=== PATIENT | male | born 1990 | race Caucasian/White ===

== ENCOUNTER 2017-04-28 09:27 | Emergency (ER) | payer SELFPAY ==
[2017-04-28 09:29] VITALS: BP 160/73; PULSE 91; RESP 17; TEMP 98.4; O2SAT 99
--- NOTE | 2017-04-28 09:45 | PD ---
HPI . left hand swelling x 2 days Chief Complaint: Injury Time Seen by Provider: 09:45 Travel History International Travel<30 days: No Contact w/Intl Traveler<30days: No Traveled to known affect area: No History of Present Illness HPI 27-year-old male here with complaints of left hand swelling 2 days. Patient says that he initially noticed some right hand swelling that all of a sudden his left hand started swelling 2 days ago. He admits to the area being very tender. He doesn't know if something may have started him. There is some slight bruising, but he is not certain if he may have hit something. He denies any IV drug use. He is accompanied by his mother. PFSH Past Medical History Asthma: No Blood Disorders: No Anxiety: No Depression: No Heart Rhythm Problems: No Cancer: No Cardiovascular Problems: No High Cholesterol: No Chemotherapy: No Chest Pain: No Congestive Heart Failure: No COPD: No Diabetes: No Diminished Hearing: No Endocrine: No Genitourinary: No Immune Disorder: No Musculoskeletal: No Neurologic: No Psychiatric: No Reproductive: No Respiratory: No Radiation Therapy: No Sleep Apnea: No Thyroid Disease: No Social History Alcohol Use: No Tobacco Use: Yes (one half to a pack of cigarettes per day) Substance Use: Yes (heroin and "pills") Allergies-Medications (Allergen,Severity, Reaction): Coded Allergies: No Known Allergies (Unverified , 12/20/16) Reported Meds & Prescriptions Reported Meds & Active Scripts Active Ibuprofen 800 Mg Tab 800 Mg PO Q8H PRN Review of Systems General / Constitutional: No: Fever Eyes: No: Visual changes HENT: No: Headaches Cardiovascular: No: Chest Pain or Discomfort Respiratory: No: Shortness of Breath Gastrointestinal: No: Abdominal Pain Genitourinary: No: Dysuria Musculoskeletal: Positive: Edema (left hand), Pain (left hand) Skin: No Rash Neurologic: No: Weakness Psychiatric: No: Depression Endocrine: No: Polydipsia Hematologic/Lymphatic: No: Easy Bruising Physical Exam Narrative GENERAL: AAO x 3, no acute distress, Well-nourished, well-developed patient. SKIN: Warm and dry. No visible rashes or bruising. left hand edematous; tender to touch, slight ecchymosis to palmar surface, pulses normal b/l; cap refill normal HEAD: Normocephalic and atraumatic. EYES: No scleral icterus. No injection or drainage. ENT: No nasal drainage noted. Mucous membranes pink. Airway patent. NECK: Supple, trachea midline. No JVD. CARDIOVASCULAR: Regular rate and rhythm without murmurs, gallops, or rubs. RESPIRATORY: Breath sounds equal bilaterally. No accessory muscle use. No rhonchi or rales. GASTROINTESTINAL: Abdomen soft, non-tender, nondistended. EXTREMITIES: No cyanosis, moderate edema to left hand, tender to touch over entire extremity, more in the 1-3 metacarpal area, digits move, but elicit pain BACK: No obvious deformity. NEURO: CN II-12 intact, PSYCH: AAO x 3, normal affect. Data Data Last Documented VS Vital Signs Date Time Temp Pulse Resp B/P (MAP) Pulse Ox O2 Delivery O2 Flow Rate FiO2 04/28/17 09:45 97 Room Air 04/28/17 09:29 98.4 91 17 160/73 (102) Orders Orders Hand, Complete ([id number]) (04/28/17 09:48) Splinting (04/28/17 ) Mandatory Outpatient Referral (04/28/17 10:50) [facility] Medical Decision Making Medical Screen Exam Complete: Yes Emergency Medical Condition: Yes Medical Record Reviewed: Yes Differential Diagnosis Hand fracture, allergic reaction, autoimmune disease Narrative Course 27 yr old male here with c/o hand pain for 2 days. On exam there appears to be possibility of fracture. Patient has no known injury. Imaging ordered: X-ray with minimally displaced metacarpal fracture 1045: Discussed with Dr. Brunilda Vo, splint, ibuprofen and outpatient f/u. Discussed results and treatment plan with patient and his mom. Mandatory outpt referral placed. Splint applied by cath lab radiology technician Mike. Ibuprofen PRN pain. Patient verbalized understanding of instructions, questions were answered, and thanked me for their care. I advised them if their condition worsens, please return to the nearest emergency room for further care. Diagnosis Primary Impression: Metacarpal bone fracture Qualified Codes: S62.310A - Displaced fracture of base of second metacarpal bone, right hand, initial encounter for closed fracture Referrals: Marcella Vo MD Hand Surgeon Patient Instructions: General Instructions Med/Other Pt SpecificInfo: Prescription(s) given Scripts Ibuprofen (Ibuprofen) 800 Mg Tab 800 MG PO Q8H Y for Pain/Inflammation, #21 TAB 0 Refills Prov: Ramya Jones MD 04/28/17 Disposition: 01 DISCHARGE HOME Condition: Stable Gardenia Baca Apr 28, 2017 09:45
--- NOTE | 2017-04-28 10:19 | RADRPT ---
EXAM DATE/TIME: 04/28/2017 10:13 [facility] COMPARISON: No previous studies available for comparison. INDICATIONS : Left hand pain and swelling for a few days. No known injury. MEDICAL HISTORY : None. SURGICAL HISTORY : None. ENCOUNTER: Initial ACUITY: 1 day PAIN SCORE: 10/10 LOCATION: Left hand. FINDINGS: 3 views of the left hand demonstrate an oblique minimally displaced fracture of the proximal second m etacarpal metaphysis. No other fracture is identified. There is no dislocation. Severe posterior hand soft tissue swelling is present. No radiopaque foreign body is visualized. CONCLUSION: There is an oblique minimally displaced fracture of the second metacarpal proximal metaphysis. There is severe posterior and soft tissue swelling. Charly Peñaloza MD on April 28, 2017 at 10:16 Board Certified Radiologist. This report was verified electronically.
[2017-04-28] MEDS ORDERED: IBUP800T23 PO (10:46)
== END 2017-04-28 11:43 | disposition home or self-care (01) ==
LOC: NEPK 09:27
DX: S62.310A Displaced fracture of base of second metacarpal bone, right hand, initial encounter for closed fracture (principal); F17.210 Nicotine dependence, cigarettes, uncomplicated; X58.XXXA Exposure to other specified factors, initial encounter
CPT/HCPCS: 29125; 73130